=== PATIENT | male | born 1990 | race Caucasian/White ===

== ENCOUNTER 2021-07-16 04:47 | Emergency (ER) | payer MEDICAID, SELFPAY ==
--- NOTE | 2021-07-16 04:47 | USR_ITS ---
PROCEDURE INFORMATION: Exam: US Scrotum and US Duplex Artery and Vein, Scrotum, Complete Exam date and time: 07/16/2021 5:09 AM Age: 31 years old Clinical indication: Scrotum pain; Additional info: Testicle pain TECHNIQUE: Imaging protocol: Real-time ultrasound of the scrotum. Real-time duplex ultrasound scan of the arterial and venous flow of the scrotum with B-mode, color Doppler flow and spectral waveform analysis. Complete exam. Duplex images required to evaluate vascular conditions. COMPARISON: No relevant prior studies available. FINDINGS: Right: The right testicle measures 39 x 21 x 30 mm, estimated volume 13.1 cc. No visible/definite solid intratesticular mass. Well-defined low-attenuation/cystic area in the inferior right testicle, measuring 9 x 6 x 6 mm. I think this is likely a cyst rather than a sonolucent solid mass, difficult to be completely certain. Appropriate follow-up may be useful to insure against any interval growth. Duplex Doppler evaluation, with color flow and spectral waveform analysis, demonstrates intratesticular arterial and venous blood flow. The right epididymis is normal in size and appearance. There is no significant right scrotal fluid. Left: The left testicle measures 42 x 21 x 29 mm, estimated volume 13 1 cc. No visible intratesticular mass. Duplex Doppler evaluation, with color flow and spectral waveform analysis, demonstrates intratesticular arterial and venous blood flow. The left epididymis is normal in size and appearance. There is no significant left scrotal fluid. US/US scrotum [id number] IMPRESSION: 1. No evidence for torsion by Doppler ultrasound. 2. No findings to suggest epididymitis. 3. Apparent cystic area in the inferior right testicle, see above discussion. 4. Other details discussed above.
[2021-07-16 04:53] VITALS: BP 143/88; PULSE 74; RESP 25; TEMP 36.3; O2SAT 100; BMI 19.0
--- NOTE | 2021-07-16 04:55 | W.ED.MALEGU ---
Documented by User: Marysol Martin MD 07/16/21 05:05 HPI - Male Genitourinary General: Chief complaint: Urogenital-Male Stated complaint: testicular pain Time Seen by Provider: 07/16/21 04:50 Source: patient Mode of arrival: ambulatory Limitations: no limitations History of Present Illness: 31-year-old male who states that he woke up an hour ago with severe left testicle pain. He states that the pain is sharp in nature rates it a 10 out of 10 is causing to have vomiting. He denies any radiation of his pain. Patient denies any fevers. He denies any abdominal or back pain. States the pain is much worse with palpation. He denies any dysuria or fevers. Associated symptoms: Deny nausea or vomiting Review of Systems Const: Denies: fever(s), chills, body aches or change in appetite Eyes: Denies: blurry vision or eye discomfort ENMT: Denies: throat pain or dental pain Card: Denies: chest pain Resp: Denies: dyspnea GI: Denies: abdominal pain, nausea, vomiting or diarrhea : Reports: testicular pain Musc: Denies: neck pain or back pain Skin/Breast: Denies: rash Neuro: Denies: headache(s) Psych: Denies: depression Phan/Lymph: Denies: easy bruising All/Imm: Denies: urticaria PFSH ED PFSH: Medical History (Updated 07/16/21 @ 07:29 by Tucker Lam MD) No pertinent past medical history Social History (Updated 07/16/21 @ 04:56 by Marysol Martin MD) Substance/Drug Use: unknown Physical Exam Const: COMMON NORMALS: patient oriented x3 and healthy appearing HENMT: COMMON NORMALS: normocephalic and atraumatic HEAD & SCALP: normocephalic and atraumatic Eye: COMMON NORMALS: Equal, round and reactive pupils present and EOMs intact bilaterally PUPIL: Yes Equal, round and reactive pupils present Neck/C-Spine: COMMON NORMALS: full ROM and supple Chest: COMMONS NORMALS: normal inspection of the chest and normal palpation of entire chest wall Resp: COMMON NORMALS: normal respiratory effort, No retractions, No use of accessory muscles and clear to auscultation bilaterally AUSCULTATION: clear to auscultation bilaterally Cardio: COMMON NORMALS: regular rate, regular rhythm and No murmurs present (Cardio) RATE: regular rate RHYTHM: regular rhythm GI: COMMON NORMALS: Normal to inspection, nondistended, normoactive bowel sounds present, Soft to palpation, non-tender and no masses PALPATION: Yes Soft to palpation : OTHER: Tenderness to left testicle on exam Extremity: COMMON NORMALS: normal to inspection and full ROM Neuro: COMMON NORMALS: patient oriented x3, moves all extremities and no focal motor deficits Psych: COMMON NORMALS: mental status grossly normal, Normal thought process present and cooperative THOUGHT PROCESS: Normal thought process present Skin: COMMON NORMALS: no rashes or lesions noted and no wounds GENERAL SKIN EXAM: no rashes or lesions noted Course Vital Signs: Vital signs: Vital Signs Temperature 97.4 F L 07/16/21 06:25 Pulse Rate 64 07/16/21 06:25 Respiratory Rate 20 H 07/16/21 06:25 Blood Pressure 119/81 07/16/21 06:25 Pulse Oximetry 100 07/16/21 06:25 MDM - Male Lab Data : 07/16/21 06:08 07/16/21 06:08 Radiology Impressions Scrotum Ultrasound 07/16/21 04:47 IMPRESSION: 1. No evidence for torsion by Doppler ultrasound. 2. No findings to suggest epididymitis. 3. Apparent cystic area in the inferior right testicle, see above discussion. 4. Other details discussed above. Abdomen/Pelvis CT 07/16/21 05:38 IMPRESSION: 1. 2 mm distal left ureteral calculus, see additional details above. 2. Mild left hydronephrosis and hydroureter. 3. Possible mild urinary bladder wall thickening, see above. 4. No free air or significant bowel distention. No evidence for bowel obstruction. 5. No findings to strongly suggest diverticulitis. 6. Normal appendix. 7. Other findings discussed above. Laboratory Results WBC 15.2 10^3/uL (4.0-10.0) H 07/16/21 06:08 RBC 4.55 10^6/uL (4.1-5.3) 07/16/21 06:08 Hgb 13.9 g/dL (11.7-16.6) 07/16/21 06:08 Hct 39.2 % (42.0-52.0) L 07/16/21 06:08 MCV 86.2 fl (80-94) 07/16/21 06:08 MCH 30.5 pg (28.0-34.0) 07/16/21 06:08 MCHC 35.5 g/dL (30.0-36.0) 07/16/21 06:08 RDW 11.3 % (12.1-15.1) L 07/16/21 06:08 Plt Count 300 10^3/cmm (130-400) 07/16/21 06:08 MPV 10.3 fL (7.4-10.4) 07/16/21 06:08 Neut % (Auto) 80.2 % 07/16/21 06:08 Lymph % (Auto) 10.7 % 07/16/21 06:08 Merrick % (Auto) 6.5 % 07/16/21 06:08 Eos % (Auto) 1.6 % 07/16/21 06:08 Baso % (Auto) 0.7 % 07/16/21 06:08 Neut # (Auto) 12.23 10^3/uL (1.8-7.7) H 07/16/21 06:08 Lymph # (Auto) 1.6 10^3/uL (0.8-4.8) 07/16/21 06:08 Merrick # (Auto) 1.0 10^3/uL (0.2-0.9) H 07/16/21 06:08 Eos # (Auto) 0.2 10^3/uL (0.0-0.8) 07/16/21 06:08 Baso # (Auto) 0.1 10^3/uL (0.0-0.1) 07/16/21 06:08 Nucleated RBC % (auto) 0 % 07/16/21 06:08 Nucleated RBCs # 0.0 /100WBC 07/16/21 06:08 Sodium 139 mmol/L (136-145) 07/16/21 06:08 Potassium 3.7 mmol/L (3.5-5.1) 07/16/21 06:08 Chloride 103 mmol/L (98-107) 07/16/21 06:08 Carbon Dioxide 26 mmol/L (22-29) 07/16/21 06:08 Anion Gap 13.7 (5-19) 07/16/21 06:08 BUN 15 mg/dL (6-20) 07/16/21 06:08 Creatinine 1.0 mg/dL (0.7-1.2) 07/16/21 06:08 GFR Calculation 87.7 mL/min (90-130) L 07/16/21 06:08 Glucose 133 mg/dL (65-115) H 07/16/21 06:08 Calculated Osmolality 291 mOsm/kg (285-295) 07/16/21 06:08 Calcium 9.1 mg/dL (8.5-10.5) 07/16/21 06:08 Total Bilirubin 0.3 mg/dL (0.15-1.2) 07/16/21 06:08 AST 27 U/L (0-40) 07/16/21 06:08 ALT 10 U/L (0-41) 07/16/21 06:08 Alkaline Phosphatase 74 IU/L (40-130) 07/16/21 06:08 Total Protein 7.1 g/dL (6.6-8.7) 07/16/21 06:08 Albumin 4.5 g/dL (3.5-5.2) 07/16/21 06:08 Globulin 2.6 g/dL (1.3-4.6) 07/16/21 06:08 Discharge Plan Discharge Patient Disposition: Home Clinical Impression: Kidney stone Prescriptions: New Flomax 0.4 mg capsule 0.4 mg PO DAILY Qty: 4 0RF hydrocodone-acetaminophen 5-325 mg tablet 1 tab PO Q6H PRN (Reason: pain) Qty: 10 0RF Discharge Orders: Discharge ED (Routine); Ordered 07/16/21 Ordered By: Tucker Lam Coding Level of Care Code ED Mems Device Scientist for Chg Fwd Exam Comprehensive Documented by User: Tucker Lam MD 07/16/21 07:31 HPI - Male Genitourinary General: Chief complaint: Urogenital-Male Stated complaint: testicular pain Time Seen by Provider: 07/16/21 04:50 [facility]: Medical History (Updated 07/16/21 @ 07:29 by Tucker Lam MD) No pertinent past medical history Social History (Updated 07/16/21 @ 04:56 by Marysol Martin MD) Substance/Drug Use: unknown Course Reevaluation(s): Reevaluation #1: Signout from Dr. Martin. Patient here with pain in his left testicle/left flank. Awaiting ultrasound and CT results. I talked to the patient about the test results. He is resting comfortable in a gurney at this time. We will start him on Flomax and pain medication. Will encourage him to drink plenty of fluid. I discussed with him the findings on ultrasound including the small cyst like structure on his right testicle and encouraged him to follow-up with his primary care physician for repeat ultrasound. Will discharge home at this time with precautions to return for worsening or changing symptoms. Vital Signs: Vital signs: Vital Signs Temperature 97.4 F L 07/16/21 06:25 Pulse Rate 64 07/16/21 06:25 Respiratory Rate 20 H 07/16/21 06:25 Blood Pressure 119/81 07/16/21 06:25 Pulse Oximetry 100 07/16/21 06:25 [facility] - Male Medical Decision Making n Lab Data : 07/16/21 06:08 07/16/21 06:08 Radiology Impressions Scrotum Ultrasound 07/16/21 04:47 IMPRESSION: 1. No evidence for torsion by Doppler ultrasound. 2. No findings to suggest epididymitis. 3. Apparent cystic area in the inferior right testicle, see above discussion. 4. Other details discussed above. Abdomen/Pelvis CT 07/16/21 05:38
[2021-07-16 05:09] VITALS: RESP 20
[2021-07-16] MEDS: ondansetron 2 mg/ML SDV 2 mL 4 MG IVP (05:09)
[2021-07-16] MEDS: HYDROmorphone 1 mg/mL INJ 1 mL IVP ×2 (05:09→05:43)
--- NOTE | 2021-07-16 05:38 | CTR_ITS ---
PROCEDURE INFORMATION: Exam: CT Abdomen And Pelvis Without Contrast Exam date and time: 07/16/2021 5:51 AM Age: 31 years old Clinical indication: Nausea and vomiting; Abdominal pain; Patient HX: C/O left flank and left testicular pain with n/v; Additional info: Left flank pain TECHNIQUE: Imaging protocol: Computed tomography of the abdomen and pelvis without contrast. Radiation optimization: All CT scans at this facility use at least one of these dose optimization techniques: automated exposure control; mA and/or kV adjustment per patient size (includes targeted exams where dose is matched to clinical indication); or iterative reconstruction. COMPARISON: No relevant prior studies available. RADIATION DOSE METRICS: Total DLP (mGy-cm): 794.81 FINDINGS: Lungs: The lung bases are clear. Liver: Unremarkable. Gallbladder and bile ducts: No definite gallbladder abnormality by CT. No biliary tree dilation. Pancreas: Unremarkable. Spleen: Unremarkable. Adrenal glands: Unremarkable. Kidneys and ureters: Mild left hydronephrosis and hydroureter. There appears to be a 2 mm distal left ureteral calculus, about 1 cm from the UVJ. This is best visualized on the coronal reconstructions. No definite/visible intrarenal calculus. The right kidney appears essentially unremarkable. Stomach and bowel: No significant bowel distention. There are no CT findings to strongly suggest diverticulitis. Appendix: The appendix is visualized and appears normal. Intraperitoneal space: No free intraperitoneal air, or ascites. Vasculature: No evidence for abdominal aortic aneurysm. Lymph nodes: No retroperitoneal adenopathy. Urinary bladder: No visible calculus in the urinary bladder. Possibly some mild diffuse urinary bladder wall thickening. The urinary bladder appears essentially unremarkable by CT. While nonspecific, this could indicate evidence for cystitis. Please correlate clinically. Reproductive: Essentially unremarkable for age. Bones/joints: No significant acute finding. Soft tissues: No significant acute finding. CT/CT abdomen pelvis wo con [id number] IMPRESSION: 1. 2 mm distal left ureteral calculus, see additional details above. 2. Mild left hydronephrosis and hydroureter. 3. Possible mild urinary bladder wall thickening, see above. 4. No free air or significant bowel distention. No evidence for bowel obstruction. 5. No findings to strongly suggest diverticulitis. 6. Normal appendix. 7. Other findings discussed above.
[2021-07-16 06:14] LABS: Basophils # 0.1 10^3/uL (0.0-0.1); Basophils % 0.7 %; Eosinophils # 0.2 10^3/uL (0.0-0.8); Eosinophils % 1.6 %; Hematocrit 39.2 % (42.0-52.0); Hemoglobin 13.9 g/dL (11.7-16.6); Lymphocytes # 1.6 10^3/uL (0.8-4.8); Lymphocytes % 10.7 %; Mean Corpuscular HGB Conc 35.5 g/dL (30.0-36.0); Mean Corpuscular Hemoglobin 30.5 pg (28.0-34.0); Mean Corpuscular Volume 86.2 fl (80-94); Mean Platelet Volume 10.3 fL (7.4-10.4); Monocytes % 6.5 %; Neutrophils # 12.23 10^3/uL (1.8-7.7); Neutrophils % 80.2 %; Nucleated Red Blood Cells % 0 %; Platelet Count 300 10^3/cmm (130-400); Red Blood Count 4.55 10^6/uL (4.1-5.3); Red Cell Distribution Width 11.3 % (12.1-15.1); White Blood Count 15.2 10^3/uL (4.0-10.0)
[2021-07-16 06:25] VITALS: BP 119/81; PULSE 64; RESP 20; TEMP 36.3; O2SAT 100
[2021-07-16 06:35] LABS: Alanine Aminotransferase 10 U/L (0-41); Albumin Level 4.5 g/dL (3.5-5.2); Alkaline Phosphatase 74 IU/L (40-130); Anion Gap 13.7 (5-19); Aspartate Amino Transferase 27 U/L (0-40); Blood Urea Nitrogen 15 mg/dL (6-20); Calcium 9.1 mg/dL (8.5-10.5); Carbon Dioxide 26 mmol/L (22-29); Chloride 103 mmol/L (98-107); Creatinine Clr Calc Pharmacy 97.0185; Globulin 2.6 g/dL (1.3-4.6); Glomerular Filtration Rate 87.7 mL/min (90-130); Glucose 133 mg/dL (65-115); Osmolality Calculated 291 mOsm/kg (285-295); Potassium 3.7 mmol/L (3.5-5.1); Sodium 139 mmol/L (136-145); Total Bilirubin 0.3 mg/dL (0.15-1.2); Total Protein 7.1 g/dL (6.6-8.7)
--- NOTE | 2021-07-16 06:58 | PC.NURSE ---
Pt sleeping between care, appears in no acute pain or distress.
[2021-07-16 07:49] LABS: Urine Color Yellow (Yellow)
[2021-07-16 07:50] LABS: Add Urine Microscopic? YES; Bilirubin Urine Neg (Negative); Blood Urine 3+ (Negative); Glucose Urine UA Norm (Normal); Ketones Urine 1+ (Negative); Leukocyte Esterase Urine Negative (Negative); Nitrate Urine Negative (Negative); Protein Urine Neg (Negative); Specific Gravity, Urine 1.015 (1.005-1.030); Urine Appearance Clear (CLEAR); Urobilinogen Urine Norm (Negative); pH Urine 7 (5-7)
[2021-07-16 07:51] LABS: Add Urine Culture? Yes; Bacteria Urine TRACE /hpf; Mucus Urine TRACE /hpf; RBC Urine 25-40 /hpf (0-2)
== END 2021-07-16 07:56 | disposition home or self-care (01) ==
PROVIDERS: Emergency Provider Emergency Medicine
DX: N20.0 Calculus of kidney (principal); R11.10 Vomiting, unspecified
CPT/HCPCS: 74176; 76870; 80053; 81001; 85025; 87086; 96374; 96375; 96376; 99284; J1170; J2405